=== PATIENT | female | born 1935 | race Caucasian/White ===

== ENCOUNTER 2017-09-05 08:18 | Day surgery (SDC) | payer MEDICARE, OTHER ==
[~2017-09-05] VITALS: Ht 157.5 cm; Wt 61.2 kg
--- NOTE | ~2017-09-05 | OP ---
PATIENT NAME: ABDIFATAH TERRELL MEDICAL RECORD: [id number] :33 LOCATION:[place] ADMISSION DATE: SURGEON: BRENT LION MD DATE OF OPERATION: 09/05/2017 PREOPERATIVE DIAGNOSIS: Chronic pansinusitis. POSTOPERATIVE DIAGNOSIS: Chronic pansinusitis. PROCEDURE: Bilateral middle meatal antrostomies, bilateral ethmoidectomy, and bilateral frontal sinusotomy. SURGEON: Brent Lion MD ANESTHESIA: General orotracheal. BLOOD LOSS: Less than 5 cc. SPECIMENS: Cultures from the maxillary sinus bilaterally, aerobic, anaerobic, Gram stain, fungal. NASAL PACKING: None. COMPLICATIONS: None. DISPOSITION: Recovery stable. DESCRIPTION OF PROCEDURE: She is brought to the operating room and placed in supine position, sedated and intubated by anesthesia. The table was turned 90 degrees. A head drape was applied and she was positioned for nasal endoscopy. Using a headlight and nasal speculum, both sides of the nose were examined. Inferior turbinate, middle turbinate, and lateral nasal wall were injected with a total of 1 cc of 1% lidocaine with 1:100,000 epinephrine and 2 Afrin pledgets were placed in each side of the nose. She was positioned, prepped, and draped in usual sterile fashion. The pledgets from the right side were removed. Using the scope, we went back in the nose. The inferior turbinate was normal. The floor of the nose was normal. There was purulence around the middle meatus. Posteriorly, the nasal cavity was normal. There were no masses or polyps. The septum was relatively straight and there was no granulation or abnormal mucosa. Sycamore was used to medialize the middle turbinate. There was purulence in the middle meatus. The lateral nasal wall, uncinate and root of the middle turbinate were injected with another 0.5 cc of 1% lidocaine 1:100,000 epinephrine and Afrin pledget was placed in through the middle meatus. Then, the same thing was done on the left side, again all examined and the nasal cavity, inferior and middle turbinates were normal. There was purulence in the middle meatus again. The nasal vault was clear and the posterior nasal cavity and nasopharynx were normal. There were no masses, polyps, or granulation. Then, the right side pledget was removed from the middle meatus. The uncinate was fractured anteriorly and taken down with a microdebrider. The maxillary ostia was opened up and curved olive tip suction was inserted along with a Luki trap and suctioned out few mL of purulent material. The ethmoid cavity was then entered with a microdebrider. Again, there was purulence in there. Cultures were obtained with aerobic, anaerobic swabs and ethmoid cavity was taken down anteriorly and then posteriorly. I opened up, it was nice and clean. The frontal sinus duct was probed with a small curved small olive tip suction up OPERATIVE REPORT [id number] ABDIFATAH TERRELL into the frontal sinus. We got a little bit of purulence, may be 1 mL from that sinus. We then went ahead and irrigated it repeatedly with saline and a 20 cc syringe rinsed it out. There really was not much bleeding from the right side and the left side was addressed. The pledget was removed. Again, the uncinate was fractured anteriorly and microdebrider was used to take that down and then a large curved olive tip suction was inserted into the maxillary sinus, which was pretty much completely full of purulence. This was suctioned out and then the ethmoid cavity was entered inferomedially and again cultures were taken from the ethmoids with swabs. The ethmoid cavity anteriorly was full of purulence and then got back to the grand lamella, opened everything, took out a little bony spicules and cleaned up and the posterior ethmoid cavity was fairly clean and again inserted olive tip suction into the frontal sinus duct and the frontal sinus on the left side was again full of thick all of brown purulence just like the maxillary sinus on the same side. Once that was evacuated, it was repeatedly irrigated with saline of 20 mL and 60 mL syringes irrigating it out completely. The same was done with the maxillary sinus rinsing it out. Once everything was clean, all the pledgets were out of both sides. The nose was again examined. Both maxillary sinuses were repeatedly irrigated with 60 mL syringe and then both frontal sinuses again were irrigated as were the ethmoid cavities. It was clean and nice. The inferior turbinates were outfractured with a Hamilton elevator and then the same curved olive tip suction were used to put a couple mL of mupirocin in both maxillary sinuses and about 1 mL in each frontal sinus as well. The pharynx was suctioned. The nasopharynx was clear. She was awakened, extubated, and transported to recovery in good condition. No complications. The eye exam was normal bilaterally. TRANSINT:[id number] Voice Confirmation ID: [id number] DOCUMENT ID: [id number] BRENT LION MD at 1044 CC: [id number] DICTATION DATE: 09/05/17 1306 ACCOUNTANT MANAGER: 09/05/17 1344 [facility] 09/05/17 [place] [id number]
--- NOTE | ~2017-09-05 | HP ---
PATIENT: ABDIFATAH ESTEVEZ MEDICAL RECORD: [id number] ACCOUNT: [id number] [place] : 33 ADMISSION DATE: 09/05/17 HISTORY AND PHYSICAL EXAMINATION PREOPERATIVE HISTORY AND PHYSICAL HISTORY OF PRESENT ILLNESS: Ms. Estevez is an 82-year-old female. She has been having chronic sinusitis and nasal obstruction refractory to medical management. She is being admitted for sinus surgery. PAST MEDICAL HISTORY: Includes hypertension, osteoarthritis. ALLERGIES: ASPIRIN, SOLU-MEDROL, OXYBUTYNIN. PAST SURGICAL HISTORY: Hysterectomy, shoulder surgery. CURRENT MEDICATIONS: Estradiol, amlodipine, fluticasone, baclofen, escitalopram, levothyroxine, losartan, trazodone, meloxicam, Sudogest. PHYSICAL EXAMINATION: GENERAL: She is healthy-appearing. FACE: Normal, symmetric, no lesions. EYES: Sclerae and conjunctivae are normal. EARS: Canals and TMs are normal. NOSE: No masses, polyps, or drainage. ORAL CAVITY AND OROPHARYNX: Tongue protrudes in midline. Pharynx is normal. NECK: No masses or adenopathy. CHEST: Clear. CARDIOVASCULAR: Regular rate and rhythm, no murmur. EXTREMITIES: Normal. IMPRESSION: Chronic sinusitis, refractory to medical management. PLAN: Bilateral middle meatal antrostomy, bilateral ethmoidectomy, and bilateral frontal sinusotomy. TRANSINT:[id number] Voice Confirmation ID: [id number] DOCUMENT ID: [id number] KAROLINE LION MD at 1044 CC: [id number] DICTATION DATE: 09/04/17 1007 SUPERVISOR DIAGNOSTIC: 09/04/17 1047 [facility] 09/05/17 [place] [id number]
[2017-09-05 08:56] LABS: EOSINOPHILS 2.5 % (0-7); HEMATOCRIT 36.5 % (36.0-48.0); HEMOGLOBIN 11.7 g/dL (12-16); IMMATURE GRANULOCYTES 0.3 % (0-5); LYMPHOCYTES 27.6 % (15-50); MCH 27.9 pg (26.0-34.0); MCHC 32.1 g/dL (31.0-37.0); MCV 86.9 fL (80.0-100.0); MEAN PLATELET VOLUME 8.7 fL (7.4-10.4); MONOCYTES 7.7 % (2-11); NEUTROPHILS 60.9 % (40-80); PLATELET COUNT 271 10x3/uL (130-400); RDW 12.9 % (11.5-14.5); WBC 9.1 10x3/uL (4.8-10.8)
[2017-09-05] MEDS ORDERED: ESTRACE1 MG PO (09:05)
[2017-09-05] MEDS ORDERED: BACLOFEN10 MG (09:06)
[2017-09-05] MEDS ORDERED: LEVOTHYROXINE75 MCG PO (09:07)
[2017-09-05] MEDS ORDERED: NORVASC5 MG PO (09:08)
[2017-09-05 09:09] LABS: CALCIUM 9.4 mg/dL (8.5-10.1)
[2017-09-05] MEDS ORDERED: FLUTICASONE PRO16 GM NASAL (09:09)
[2017-09-05] MEDS ORDERED: MOBIC7.5 MG PO (09:09)
[2017-09-05] MEDS ORDERED: TRAZODONE HCL50 MG PO (09:10)
[2017-09-05] MEDS ORDERED: LEXAPRO20 MG PO (09:11)
[2017-09-05] MEDS ORDERED: DIOVAN HCT 320/1 TA2 PO (09:12)
[2017-09-05] MEDS ORDERED: HYDROCODONE-APA1 TAB PO (09:12)
[2017-09-05 09:34] VITALS: BP 153/68; Ht 157.5 cm; Wt 61.2 kg
[2017-09-08 13:13] LABS: FUNGUS STAIN Final report (())
[2017-09-12 19:12] LABS: AEROBE ID Final report (())
[2017-10-03 17:11] LABS: FUNGUS MYCOLOGY CULTURE Final report (())
== END 2017-09-05 15:45 | disposition home or self-care (01) ==
LOC: D.OPS 08:18
PROVIDERS: Anesthesiology; Otolaryngology
DX: J32.4 Chronic pansinusitis (principal); I10 Essential (primary) hypertension; E03.9 Hypothyroidism, unspecified; M19.90 Unspecified osteoarthritis, unspecified site; Z01.812 Encounter for preprocedural laboratory examination